=== PATIENT | female | born 1955 | race Caucasian/White ===

== ENCOUNTER 2016-12-17 10:32 | Emergency (ER) | payer BC ==
[2016-12-17] MEDS ORDERED: SODIUM CHLORIDE 0.9% 1,000 ML IV STA (11:29)
[2016-12-17] MEDS ORDERED: PANTOPRAZOLE 40 MG/10 ML VIAL IVP STA (11:29)
[2016-12-17] MEDS ORDERED: SODIUM CHLORIDE 0.9% 500 ML IV STA (11:29)
[2016-12-17] MEDS ORDERED: ONDANSETRON 4 MG/2 ML VIAL IVP STA (11:29)
--- NOTE | 2016-12-17 11:33 | ED ---
General Adult HPI - General Chief complaint: Abdominal Pain Stated complaint: FLU LIKE SYMPTOMS, CHEST PAIN, VOMITING Time Seen by Provider: 12/17/16 11:05 Source: patient, family, RN notes reviewed Mode of arrival: wheelchair Limitations: physical limitation - History of Present Illness Initial comments: This is a 61-year-old female who presents emergency Department complaining of vomiting diarrhea for 3 days. Patient states she occasionally gets sharp pain in the left side of her abdomen but it comes and goes quickly. Patient states she also gets some cramping occasionally but no constant pain. Patient denies any chest pain palpitations difficulty breathing or shortness of breath. Patient denies any headache patient denies numbness weakness. Patient states no one in the household has similar symptoms. Patient states she's only been eating popsicles and Jell-O except yesterday she tried some steak and she vomited that up. Patient states she did feel that her heart had an extra beat once today. Patient states she did have a fever 100.9 a few days ago but not any fever today - Related Data Home Medications Medication Instructions Recorded Confirmed Albuterol Nebulized [Ventolin 2.5 mg PO DAILY PRN 12/17/16 12/17/16 Nebulized] EPINEPHrine (Auto Inject) [Epipen] 0.3 mg IM ONCE PRN 12/17/16 12/17/16 Estradiol [Estrace] 1 mg PO DAILY 12/17/16 12/17/16 Folic Acid 1 mg PO DAILY 12/17/16 12/17/16 Levothyroxine Sodium [Synthroid] 75 mcg PO DAILY 12/17/16 12/17/16 Lisinopril [Zestril] 10 mg PO DAILY 12/17/16 12/17/16 Meclizine [Antivert] 25 mg PO DAILY PRN 12/17/16 12/17/16 Metaxalone [Skelaxin] 800 mg PO DAILY PRN 12/17/16 12/17/16 Nitroglycerin Sl Tabs [Nitrostat] 0.4 mg SUBLINGUAL Q5M PRN 12/17/16 12/17/16 levETIRAcetam [Keppra] 1,500 mg PO BID 12/17/16 12/17/16 traMADol HCL [Ultram] 50 mg PO DAILY PRN 12/17/16 12/17/16 Allergies Allergy/AdvReac Type Severity Reaction Status Date / Time codeine Allergy Rash/Hives Verified 12/17/16 12:28 Iodine and Iodide Containing Allergy Rash/Hives Verified 12/17/16 12:28 Produc levofloxacin [From Levaquin] Allergy Anaphylaxis Verified 12/17/16 12:28 meperidine [From Demerol] Allergy Unknown Verified 12/17/16 12:28 olanzapine [From Zyprexa] Allergy Unknown Verified 12/17/16 12:28 Penicillins Allergy Anaphylaxis Verified 12/17/16 12:28 pitavastatin [From Livalo] Allergy Rash/Hives Verified 12/17/16 12:28 rice Allergy Rash/Hives Verified 12/17/16 12:28 simvastatin [From Zocor] Allergy Anaphylaxis Verified 12/17/16 12:28 Review of Systems ROS Statement: Those systems with pertinent positive or pertinent negative responses have been documented in the HPI. ROS Other: All systems not noted in ROS Statement are negative. Past Medical History Past Medical History: Asthma, GERD/Reflux, Hypertension, Seizure Disorder Additional Past Medical History / Comment(s): KIDNEY STONE History of Any Multi-Drug Resistant Organisms: None Reported Past Surgical History: Appendectomy, Heart Catheterization, Hysterectomy Additional Past Surgical History / Comment(s): ANKLE, KNEE, Past Psychological History: No Psychological Hx Reported Smoking Status: Never smoker Past Alcohol Use History: None Reported Past Drug Use History: None Reported General Exam - General Exam Comments Initial Comments: GENERAL: Patient is well-developed and well-nourished. Patient is nontoxic and well- hydrated and is in mild distress. ENT: Neck is soft and supple. No significant lymphadenopathy is noted. Oropharynx is clear. Dry mucous membranes. Neck has full range of motion without eliciting any pain. T EYES: The sclera were anicteric and conjunctiva were pink and moist. Extraocular movements were intact and pupils were equal round and reactive to light. Eyelids were unremarkable. PULMONARY: Unlabored respirations. Good breath sounds bilaterally. No audible rales rhonchi or wheezing was noted. CARDIOVASCULAR: There is a regular rate and rhythm without any murmurs gallops or rubs. ABDOMEN: Soft and nontender with normal bowel sounds. No palpable organomegaly was noted. There is no palpable pulsatile mass. SKIN: Skin is clear with no lesions or rashes and otherwise unremarkable. NEUROLOGIC: Patient is alert and oriented x3. Cranial nerves II through XII are grossly intact. Motor and sensory are also intact. Normal speech, volume and content. Symmetrical smile. MUSCULOSKELETAL: Normal extremities with adequate strength and full range of motion. LYMPHATICS: No significant lymphadenopathy is noted PSYCHIATRIC: Normal psychiatric evaluation. Normal interpersonal interactions appears functionally intact in deals appropriately with others. No signs of depression. No signs of anxiety. Limitations: physical limitation Course Vital Signs 12/17/16 12/17/16 11:03 13:51 Temperature 99.3 F 98.2 F Pulse Rate 105 H 66 Respiratory 20 16 Rate Blood Pressure 127/78 127/88 O2 Sat by Pulse 99 97 Oximetry Medical Decision Making - Medical Decision Making I went back into reevaluate the patient she stated she felt considerably better. Patient was no longer nauseated. - Lab Data Result diagrams: 12/17/16 11:59 12/17/16 12:00 Lab Results 12/17/16 12/17/16 12/17/16 Range/Units 11:59 11:59 12:00 WBC 5.9 (3.8-10.6) k/uL RBC 4.88 (3.80-5.40) m/uL Hgb 14.4 (11.4-16.0) gm/dL Hct 43.8 (34.0-46.0) % MCV 89.8 (80.0-100.0) fL MCH 29.6 (25.0-35.0) pg MCHC 33.0 (31.0-37.0) g/dL RDW 13.4 (11.5-15.5) % Plt Count 200 (150-450) k/uL Neutrophils % 77 % Lymphocytes % 13 % Monocytes % 8 % Eosinophils % 1 % Basophils % 0 % Neutrophils # 4.5 (1.3-7.7) k/uL Lymphocytes # 0.8 L (1.0-4.8) k/uL Monocytes # 0.5 (0-1.0) k/uL Eosinophils # 0.0 (0-0.7) k/uL Basophils # 0.0 (0-0.2) k/uL PT 10.4 (9.0-12.0) sec INR 1.0 (<1.1) APTT 28.2 (22.0-30.0) sec Sodium 140 (137-145) mmol/L Potassium 3.6 (3.5-5.1) mmol/L Chloride 105 (98-107) mmol/L Carbon Dioxide 23 (22-30) mmol/L Anion Gap 12 mmol/L BUN 11 (7-17) mg/dL Creatinine 0.89 (0.52-1.04) mg/dL Est GFR (MDRD) Af Amer >60 (>60 ml/min/1.73 sqM) Est GFR (MDRD) Non-Af >60 (>60 ml/min/1.73 sqM) Glucose 96 (74-99) mg/dL Plasma Lactic Acid Flaquito (0.7-2.0) mmol/L Calcium 9.2 (8.4-10.2) mg/dL Total Bilirubin 0.4 (0.2-1.3) mg/dL AST 38 H (14-36) U/L ALT 33 (9-52) U/L Alkaline Phosphatase 92 (38-126) U/L Total Protein 7.2 (6.3-8.2) g/dL Albumin 4.0 (3.5-5.0) g/dL Amylase 68 (30-110) U/L Lipase 131 (23-300) U/L Urine Color Urine Appearance (Clear) Urine pH (5.0-8.0) Ur Specific Mineral (1.001-1.035) Urine Protein (Negative) Urine Glucose (UA) (Negative) Urine Ketones (Negative) Urine Blood (Negative) Urine Nitrite (Negative) Urine Bilirubin (Negative) Urine Urobilinogen (<2.0) mg/dL Ur Leukocyte Esterase (Negative) 12/17/16 12/17/16 Range/Units 12:00 12:27 WBC (3.8-10.6) k/uL RBC (3.80-5.40) m/uL Hgb (11.4-16.0) gm/dL Hct (34.0-46.0) % MCV (80.0-100.0) fL MCH (25.0-35.0) pg MCHC (31.0-37.0) g/dL RDW (11.5-15.5) % Plt Count (150-450) k/uL Neutrophils % % Lymphocytes % % Monocytes % % Eosinophils % % Basophils % % Neutrophils # (1.3-7.7) k/uL Lymphocytes # (1.0-4.8) k/uL Monocytes # (0-1.0) k/uL Eosinophils # (0-0.7) k/uL Basophils # (0-0.2) k/uL PT (9.0-12.0) sec INR (<1.1) APTT (22.0-30.0) sec Sodium (137-145) mmol/L Potassium (3.5-5.1) mmol/L Chloride (98-107) mmol/L Carbon Dioxide (22-30) mmol/L Anion Gap mmol/L BUN (7-17) mg/dL Creatinine (0.52-1.04) mg/dL Est GFR (MDRD) Af Amer (>60 ml/min/1.73 sqM) Est GFR (MDRD) Non-Af (>60 ml/min/1.73 sqM) Glucose (74-99) mg/dL Plasma Lactic Acid Flaquito 1.6 (0.7-2.0) mmol/L Calcium (8.4-10.2) mg/dL Total Bilirubin (0.2-1.3) mg/dL AST (14-36) U/L ALT (9-52) U/L Alkaline Phosphatase (38-126) U/L Total Protein (6.3-8.2) g/dL Albumin (3.5-5.0) g/dL Amylase (30-110) U/L Lipase (23-300) U/L Urine Color Yellow Urine Appearance Clear (Clear) Urine pH 6.5 (5.0-8.0) Ur Specific Mineral 1.014 (1.001-1.035) Urine Protein Negative (Negative) Urine Glucose (UA) Negative (Negative) Urine Ketones 2+ H (Negative) Urine Blood Negative (Negative) Urine Nitrite Negative (Negative) Urine Bilirubin Negative (Negative) Urine Urobilinogen <2.0 (<2.0) mg/dL Ur Leukocyte Esterase Negative (Negative) Disposition Clinical Impression: Gastroenteritis Disposition: HOME SELF-CARE Condition: Good Instructions: Gastroenteritis (ED) Referrals: Marvin Bright MD [Primary Care Provider] - 1-2 days Time of Disposition: 14:24
[2016-12-17 12:21] LABS: Basophils % (A) 0 %; CHCM 33.6; Eosinophils % (A) 1 %; HCT 43.8 % (34.0-46.0); HDW 2.43; HGB 14.4 gm/dL (11.4-16.0); Luc # (Auto) 0.09; Luc % (Auto) 2; Lymphocytes # (A) 0.8 k/uL (1.0-4.8); Lymphocytes % (A) 13 %; MCH 29.6 pg (25.0-35.0); MCV 89.8 fL (80.0-100.0); Mean Platelet Volume 6.8; Monocytes # (A) 0.5 k/uL (0-1.0); Monocytes % (A) 8 %; Neutrophils # (A) 4.5 k/uL (1.3-7.7); Neutrophils % (A) 77 %; RBC 4.88 m/uL (3.80-5.40); RDW 13.4 % (11.5-15.5); WBC 5.9 k/uL (3.8-10.6); WBC (Perox) 5.58
[2016-12-17 12:33] LABS: Partial Thromboplastin Time 28.2 sec (22.0-30.0); Prothrombin Time 10.4 sec (9.0-12.0)
[2016-12-17 12:40] LABS: ALT 33 U/L (9-52); AST 38 U/L (14-36); Alkaline Phosphatase 92 U/L (38-126); Amylase 68 U/L (30-110); Anion Gap 12 mmol/L; Blood Urea Nitrogen 11 mg/dL (7-17); Calcium 9.2 mg/dL (8.4-10.2); Carbon Dioxide 23 mmol/L (22-30); Chloride 105 mmol/L (98-107); Glucose 96 mg/dL (74-99); Non-African American GFR(MDRD) >60 (>60 ml/min/1.73 sqM); Potassium 3.6 mmol/L (3.5-5.1); Sodium 140 mmol/L (137-145); Total Bilirubin 0.4 mg/dL (0.2-1.3); Total Protein 7.2 g/dL (6.3-8.2)
[2016-12-17] MEDS ORDERED: BENZONATATE 100 MG CAP PO STA (13:26)
[2016-12-17 13:30] LABS: Appearance,Urine Clear (Clear); Bilirubin,Urine Negative (Negative); Glucose,Urine (UA) Negative (Negative); Ketones,Urine 2+ (Negative); Leukocyte Esterase,Urine Negative (Negative); Nitrite,Urine Negative (Negative); PH, Urine 6.5 (5.0-8.0); Protein,Urine Negative (Negative); Specific Gravity,Urine 1.014 (1.001-1.035); UA Billing (MACRO vs. MICRO) CHEM; Urobilinogen,Urine <2.0 mg/dL (<2.0)
--- NOTE | 2016-12-17 13:54 | XR ---
EXAMINATION TYPE: XR chest 2V DATE OF EXAM: 12/17/2016 1:50 PM COMPARISON: 02/28/2015 HISTORY: 61-year-old female with pain TECHNIQUE: PA and lateral views FINDINGS: The cardiomediastinal silhouette, aorta, and pulmonary vasculature are within normal limits. Lungs an d pleural spaces are clear. IMPRESSION: No acute cardiopulmonary process.
[2016-12-17] MEDS ORDERED: DIPHENOX-ATROP STARTER PACK 8 TAB BTL PO STA (14:25)
[2016-12-17] MEDS ORDERED: ONDANSETRON 4 MG ODT STARTER PACK 2 TAB BTL PO STA (14:25)
[2016-12-17 14:40] VITALS: BP 133/73; PULSE 95; RESP 18; TEMP 99.2
== END 2016-12-17 14:41 | disposition home or self-care (01) ==
LOC: EC 10:32
DX: K52.9 Noninfective gastroenteritis and colitis, unspecified (principal); R07.9 Chest pain, unspecified; R11.10 Vomiting, unspecified; I10 Essential (primary) hypertension; G40.909 Epilepsy, unspecified, not intractable, without status epilepticus; Z79.899 Other long term (current) drug therapy; Z88.5 Allergy status to narcotic agent; Z88.0 Allergy status to penicillin; Z88.1 Allergy status to other antibiotic agents; Z88.8 Allergy status to other drugs, medicaments and biological substances; Z91.018 Allergy to other foods; Z90.49 Acquired absence of other specified parts of digestive tract
CPT/HCPCS: 36415; 80053; 82150; 83605; 83690; 85025; 85610; 85730; 81003; 71020; 99284; 96374; 96375; 96361; J2405; S0119; C9113

== ENCOUNTER → 2017-06-11 | Outpatient (CLI) | payer BC ==
--- NOTE | 2017-06-12 07:58 | ECHOF ---
Referral Reason:R01.1 Heart Murmur MEASUREMENTS -------- HEIGHT: 162.6 cm WEIGHT: 77.1 kg BP: IVSd: 1.0 cm (0.6 - 1.1) LVIDd: 3.5 cm (3.9 - 5.3) LVPWd: 1.2 cm (0.6 - 1.1) IVSs: 1.2 cm LVIDs: 3.3 cm LVPWs: 1.3 cm LAESV Index (A-L): 23.90 ml/m Ao Diam: 2.3 cm (2.0 - 3.7) AV Cusp: 1.4 cm (1.5 - 2.6) LA Diam: 3.0 cm (2.7 - 3.8) MV EXCURSION: 14.273 mm (> 18.000) MV EF SLOPE: 52 mm/s (70 - 150) EPSS: 0.4 cm MV E Anthony: 0.82 m/s MV DecT: 180 ms MV A Anthony: 0.86 m/s MV E/A Ratio: 0.96 RAP: 5.00 mmHg RVSP: 27.98 mmHg FINDINGS -------- Sinus rhythm. This was a technically adequate study. LV size, wall thickness and systolic function are normal, with an EF greater than 55%. The left ventricular size is normal. The right ventricle is normal in size. Normal LA size by volume 22+/-6 ml/m2. The right atrial size is normal. The aortic valve is trileaflet, and appears structurally normal. No aortic stenosis or regurgitation. There is trace to mild mitral regurgitation. Mild tricuspid regurgitation present. There is no evidence of pulmonary hypertension. The right ventricular systolic pressure, as measured by Doppler, is 27.98mmHg. There is no pulmonic regurgitation present. The aortic root size is normal. There is no pericardial effusion. CONCLUSIONS -------- 1. LV size, wall thickness and systolic function are normal, with an EF greater than 55%. 2. There is no pericardial effusion. 3. The left ventricular size is normal. 4. The aortic valve is trileaflet, and appears structurally normal. No aortic stenosis or regurgitation. 5. There is trace to mild mitral regurgitation. 6. Mild tricuspid regurgitation present. 7. There is no evidence of pulmonary hypertension. 8. The right ventricular systolic pressure, as measured by Doppler, is 27.98mmHg. 9. There is no pulmonic regurgitation present. 10. The aortic root size is normal. [employer] MACHINE OPERATOR: Luisa Banks RDCS
== END | disposition home or self-care (01) ==
LOC: RADECHMAIN 15:20
PROVIDERS: ATTEND Family Medicine
DX: I08.1 Rheumatic disorders of both mitral and tricuspid valves (principal); Z88.5 Allergy status to narcotic agent; Z91.048 Other nonmedicinal substance allergy status; Z88.8 Allergy status to other drugs, medicaments and biological substances
CPT/HCPCS: 93306

== ENCOUNTER → 2018-05-29 | Outpatient (CLI) | payer BC ==
[2018-05-29 14:41] LABS: Basophils % (A) 1 %; Eosinophils # (A) 0.1 k/uL (0-0.7); Eosinophils % (A) 2 %; HCT 43.6 % (34.0-46.0); HGB 14.3 gm/dL (11.4-16.0); Lymphocytes # (A) 1.4 k/uL (1.0-4.8); Lymphocytes % (A) 19 %; MCH 28.5 pg (25.0-35.0); MCHC 32.7 g/dL (31.0-37.0); MCV 87.1 fL (80.0-100.0); Mean Platelet Volume 6.8; Monocytes # (A) 0.5 k/uL (0-1.0); Monocytes % (A) 6 %; Neutrophils # (A) 5.4 k/uL (1.3-7.7); Neutrophils % (A) 72 %; Platelet Count 270 k/uL (150-450); RDW 12.8 % (11.5-15.5); WBC 7.5 k/uL (3.8-10.6)
[2018-05-29 15:00] LABS: Albumin 3.8 g/dL (3.5-5.0); Calcium 9.4 mg/dL (8.4-10.2); Potassium 4.5 mmol/L (3.5-5.1); Total Bilirubin 0.4 mg/dL (0.2-1.3); Total Protein 7.1 g/dL (6.3-8.2)
[2018-05-29 15:16] LABS: T4, Free (Free Thyroxine) 1.02 ng/dL (0.78-2.19)
== END | disposition home or self-care (01) ==
LOC: LABWHC1 13:38
PROVIDERS: ATTEND Psychiatry & Neurology Neurology
DX: T50.905A Adverse effect of unspecified drugs, medicaments and biological substances, initial encounter (principal)
CPT/HCPCS: 36415; 80053; 84439; 84443; 85025

== ENCOUNTER → 2018-11-18 | Outpatient (CLI) | payer MEDICARE ==
--- NOTE | 2018-11-19 08:25 | US ---
EXAMINATION TYPE: US thyroid st tissue head/neck DATE OF EXAM: 11/18/2018 COMPARISON: 2010 CLINICAL HISTORY: Thyroid Goiter E04.9. GLAND SIZE: Right Lobe: 3.5 x 0.7 x 1.1 cm Overall Parenchyma: homogenous Left Lobe: 3.6 x 1.0 x 1.0 cm Overall Parenchyma: homogeneous Isthmus Thickness: 0.2 cm NODULES RIGHT: # of nodules measured on right: 1 1. 0.4 X 0.3 x 0.5 cm solid nodule at the mid pole with well-defined margins; . This nodule is wid er than tall and shows intranodular vascularity. Prior size: 0.5 cm LEFT: # of nodules measured on left: 1 1. 0.4 X 0.3 x 0.4 cm hypoechoic mixed nodule at the mid pole with well-defined margins; . This no dule is wider than tall and shows intranodular vascularity. Prior size: 0.5 cm ISTHMUS: # of nodules measured in the isthmus: 0 Bilateral neck scanned, no evidence of lymphadenopathy. IMPRESSION: Stable subcentimeter bilateral solid thyroid nodules dating back to 2009 which should be considered b enign.
== END ==
LOC: RADUSWWP 16:11
PROVIDERS: ATTEND Family Medicine
DX: E04.2 Nontoxic multinodular goiter (principal)
CPT/HCPCS: 76536

== ENCOUNTER → 2019-02-04 | Outpatient (CLI) | payer MEDICARE ==
--- NOTE | 2019-02-06 10:07 | MM ---
Reason for exam: screening (asymptomatic). Last mammogram was performed 2 years and 6 months ago. History: Patient is postmenopausal. Family history of premenopausal breast cancer in sister at age 50. Benign excisional biopsy of the left breast, April 06, 1998. Cyst aspiration of the left breast. Taking estrogen for 8 years beginning at age 43. Physical Findings: A clinical breast exam by your physician is recommended on an annual basis and results should be correlated with mammographic findings. MG 3D Screening Mammo W/Cad Bilateral CC and MLO view(s) were taken. XCCL view(s) were taken of the left breast. Prior study comparison: July 24, 2016, bilateral MG screening mammo w CAD. December 29, 2008, bilateral diagnostic digital mammog. The breast tissue is heterogeneously dense. This may lower the sensitivity of mammography. No significant changes when compared with prior studies. ASSESSMENT: Benign, BI-RAD 2 RECOMMENDATION: Routine screening mammogram of both breasts in 1 year.
== END | disposition home or self-care (01) ==
LOC: RADMAMWWP 13:23
PROVIDERS: ATTEND Family Medicine
DX: Z12.31 Encounter for screening mammogram for malignant neoplasm of breast (principal)
CPT/HCPCS: 77063; 77067

== ENCOUNTER → 2020-04-12 | Outpatient (CLI) | payer MEDICARE ==
--- NOTE | 2020-04-12 13:30 | BD ---
EXAMINATION TYPE: Axial Bone Density DATE OF EXAM: 04/12/2020 COMPARISON: NONE CLINICAL HISTORY: Height: 65.2 IN Weight: 163 LBS FRAX RISK QUESTIONS: Secondary Osteoporosis: 3. Menopause before 45: TOTAL HYST AGE 28 4. Malnutrition: YES Rheumatoid Arthritis: YES RISK FACTORS HISTORY OF: Family History of Osteoporosis: YES SISTER Active: YES Diet low in dairy products/other sources of calcium: YES Postmenopausal woman: TOTAL HYST AGE 28 Take estrogen and/or progesterone medications: YES How lon YEARS MEDICATIONS: Thyroid Medications: YES Which medication: SYNTHROID How Lon+ YEARS Additional Medications: VIT D, SYNTHROID, OSPHENA, PANTOPRAZOLE, KEPPRA, HCTZ, LISINOPRIL, SOY EXAM MEASUREMENTS: Bone mineral densitometry was performed using the [employer] System. Bone mineral density as measured about the Lumbar spine is: ----- L1-L4(G/cm2): 1.094 T Score Values are as follows: ----- L2: -0.9 ----- L3: -0.7 ----- L4: -0.9 ----- L1-L4: -0.7 Bone mineral density BASELINE Bone mineral density about the R hip (g/cm2): 0.795 Bone mineral density about the L hip (g/cm2): 0.803 T Score values are as follows: -----R Neck: -1.7 -----L Neck: -1.7 -----R Total: -1.1 -----L Total: -1.3 Bone mineral density BASELINE IMPRESSION: Osteopenia bilateral femora. NOTE: T-SCORE=SD OF THE YOUNG ADULT MEAN.
--- NOTE | 2020-04-18 10:57 | MM ---
Reason for exam: screening (asymptomatic). Last mammogram was performed 1 year and 2 months ago. History: Patient is postmenopausal. Family history of premenopausal breast cancer in sister at age 50. Benign excisional biopsy of the left breast, April 06, 1998. Cyst aspiration of the left breast. Taking estrogen for 8 years beginning at age 43. Physical Findings: A clinical breast exam by your physician is recommended on an annual basis and results should be correlated with mammographic findings. MG Screening Mammo w CAD Bilateral CC and MLO view(s) were taken. Prior study comparison: February 04, 2019, bilateral MG 3d screening mammo w/cad. July 24, 2016, bilateral MG screening mammo w CAD. The breast tissue is heterogeneously dense. This may lower the sensitivity of mammography. No significant changes when compared with prior studies. ASSESSMENT: Benign, BI-RAD 2 RECOMMENDATION: Routine screening mammogram of both breasts in 1 year.
== END | disposition home or self-care (01) ==
LOC: RADMAMWWP 11:50
PROVIDERS: ATTEND Family Medicine
DX: Z12.31 Encounter for screening mammogram for malignant neoplasm of breast (principal); M85.852 Other specified disorders of bone density and structure, left thigh; M85.851 Other specified disorders of bone density and structure, right thigh; Z78.0 Asymptomatic menopausal state
CPT/HCPCS: 77067; 77080

== ENCOUNTER → 2022-06-08 | Outpatient (CLI) | payer MEDICARE ==
--- NOTE | 2022-06-11 09:06 | MM ---
Reason for Exam: Screening (asymptomatic). Last mammogram was performed 2 year(s) and 1 month(s) ago. Patient History: Menarche at age 10. First Full-Term at age 18. Left ovary removed at age 42. Right ovary removed at age 42. Hysterectomy at age 42. Postmenopausal. Patient has history of breast feeding. Currently using Estrogen, beginning at age 43 for 8 years. Cyst Aspiration on the Left side. 04/06/1998, Benign Excisional Biopsy on the left side. Sister had breast cancer, age 50. Risk Values: Marcella 5 year model risk: 3.8%. NCI Lifetime model risk: 12.1%. Prior Study Comparison: 12/29/2008 Bilateral Diagnostic Mammogram, [facility]. 07/24/2016 Bilateral Screening Mammogram, [facility]. 02/04/2019 Bilateral Screening Mammogram, [facility]. 04/12/2020 Bilateral Screening Mammogram, [facility]. Tissue Density: The breast tissue is heterogeneously dense. This may lower the sensitivity of mammography. Findings: Analyzed By CAD. There is no suspicious group of microcalcifications or new suspicious mass in either breast. Overall Assessment: Negative, BI-RAD 1 Management: Screening Mammogram of both breasts in 1 year. A clinical breast exam by your physician is recommended on an annual basis and results should be correlated with mammographic findings. [facility] will attempt to contact patient to return for supplemental views and ultrasound if indicated. Electronically signed and approved by: Kei Leon DO
== END | disposition home or self-care (01) ==
LOC: RADMAMWWP 07:45
PROVIDERS: ATTEND Family Medicine
DX: Z12.31 Encounter for screening mammogram for malignant neoplasm of breast (principal); Z78.0 Asymptomatic menopausal state; Z80.3 Family history of malignant neoplasm of breast
CPT/HCPCS: 77063; 77067

== ENCOUNTER → 2023-07-02 | Outpatient (CLI) | payer MEDICARE ==
--- NOTE | 2023-07-03 08:58 | MM ---
Reason for Exam: Screening (asymptomatic). Last mammogram was performed 1 year(s) and 1 month(s) ago. Patient History: Menarche at age 10. First Full-Term at age 18. Left ovary removed at age 42. Right ovary removed at age 42. Hysterectomy at age 42. Postmenopausal. Patient has history of breast feeding. Currently using Estrogen, beginning at age 43 for 8 years. Cyst Aspiration on the Left side. 04/06/1998, Benign Excisional Biopsy on the left side. Sister had breast cancer, age 50. Risk Values: Marcella 5 year model risk: 3.9%. NCI Lifetime model risk: 11.1%. Prior Study Comparison: 02/04/2019 Bilateral Screening Mammogram, [facility]. 04/12/2020 Bilateral Screening Mammogram, [facility]. 06/08/2022 Bilateral MG 3D screening mammo w/cad, [facility]. Tissue Density: The breast tissue is heterogeneously dense. This may lower the sensitivity of mammography. Findings: Analyzed By CAD. There is no suspicious group of microcalcifications or new suspicious mass in either breast. Overall Assessment: Benign, BI-RAD 2 Management: Screening Mammogram of both breasts in 1 year. . Patient should continue monthly self-breast exams. A clinical breast exam by your physician is recommended on an annual basis. This exam should not preclude additional follow-up of suspicious palpable abnormalities. Note on Marcella scores and lifetime risk: 1. A Marcella score greater than 3% is considered moderate risk. If this is the case, consider specialist referral to assess eligibility for a risk reducing agent. 2. If overall lifetime risk for the development of breast cancer is 20% or higher, the patient may qualify for future screening with alternating mammogram and breast MRI. Electronically signed and approved by: Benoit Scott M.D. Radiologis
== END | disposition home or self-care (01) ==
LOC: RADMAMWWP 11:07
PROVIDERS: ATTEND Family Medicine
DX: Z12.31 Encounter for screening mammogram for malignant neoplasm of breast (principal); Z78.0 Asymptomatic menopausal state; Z80.3 Family history of malignant neoplasm of breast
CPT/HCPCS: 77063; 77067

== ENCOUNTER → 2023-11-27 | Outpatient (CLI) | payer MEDICARE ==
--- NOTE | 2023-11-27 13:45 | XR ---
EXAMINATION TYPE: XR hand complete RT, XR finger LT, XR wrist complete RT DATE OF EXAM: 11/27/2023 12:46 PM CLINICAL INDICATION:Female, 68 years old with history of M79.641 M25.531 M79.646 PAIN; [facility] COMPARISON: None TECHNIQUE: XR hand complete RT, XR finger LT, XR wrist complete RT Frontal, lateral and oblique views were obtained. The finger was evaluated in frontal lateral and oblique views. The wrist was evaluate d in frontal lateral and oblique views. FINDINGS: Normal alignment of the visualized joints. No acute osseous pathology is identified. No e vidence of soft tissue swelling. Soft tissue swelling around the fifth digit proximal interphalangeal joint. Multifocal degeneration with joint space narrowing and osteophyte formation. IMPRESSION: Soft tissue swelling around the fifth digit proximal interphalangeal joint without evidence of fractu re. Mild to moderate degeneration changes throughout the joints of the hand.
== END | disposition home or self-care (01) ==
LOC: RADXRMAIN 12:19
PROVIDERS: ATTEND Family Medicine
DX: M79.641 Pain in right hand (principal); M25.531 Pain in right wrist; M79.645 Pain in left finger(s); M79.89 Other specified soft tissue disorders

== ENCOUNTER → 2025-01-15 | Outpatient (CLI) | payer MEDICARE ==
--- NOTE | 2025-01-18 13:56 | MM ---
Reason for Exam: Screening (asymptomatic). Last mammogram was performed 1 year(s) and 7 month(s) ago. Patient History: Menarche at age 10. First Full-Term at age 18. Left ovary removed at age 42. Right ovary removed at age 42. Hysterectomy at age 42. Postmenopausal. Patient has history of breast feeding. Estrogen, starting at age 43 for 8 years. Cyst Aspiration on the Left side. 04/06/1998, Benign Excisional Biopsy on the left side. Sister had breast cancer, age 50. Risk Values: Marcella 5 year model risk: 3.9%. NCI Lifetime model risk: 10.6%. Prior Study Comparison: 04/12/2020 Bilateral Screening Mammogram, [facility]. 06/08/2022 Bilateral MG 3D screening mammo w/cad, [facility]. 07/02/2023 Bilateral MG 3D screening mammo w/cad, [facility]. Tissue Density: The breasts are heterogeneously dense, which may obscure small masses. Findings: Analyzed By CAD. Right breast: There is no suspicious group of microcalcifications or new suspicious mass. Left breast: There is no suspicious group of microcalcifications or new suspicious mass. Overall Assessment: Negative, BI-RAD 1 Management: Screening Mammogram of both breasts in [address] [facility] will attempt to contact patient to return for supplemental views and ultrasound if indicated. Patient should continue monthly self-breast exams. A clinical breast exam by your physician is recommended on an annual basis. This exam should not preclude additional follow-up of suspicious palpable abnormalities. Note on Marcella scores and lifetime risk: 1. A Marcella score greater than 3% is considered moderate risk. If this is the case, consider specialist referral to assess eligibility for a risk reducing agent. 2. If overall lifetime risk for the development of breast cancer is 20% or higher, the patient may qualify for future screening with alternating mammogram and breast MRI. [facility], , 01/15/2025 11:40 AM. Electronically signed and approved by: Kei Leon DO
== END | disposition home or self-care (01) ==
LOC: RADMAMWWP 11:26
PROVIDERS: ATTEND Family Medicine
DX: Z12.31 Encounter for screening mammogram for malignant neoplasm of breast (principal); R92.333 Mammographic heterogeneous density, bilateral breasts; Z78.0 Asymptomatic menopausal state; Z80.3 Family history of malignant neoplasm of breast
CPT/HCPCS: 77063; 77067